=== PATIENT | male | born 1970 | race Caucasian/White ===

== ENCOUNTER 2022-01-21 14:55 | Observation (INO) | payer OTHER, SELFPAY ==
[2022-01-21] VITALS (7 sets, daily range): BP systolic 94–155; BP diastolic 53–91; PULSE 74–103; RESP 16–22; TEMP 36.6–37.2; O2SAT 94–100; BMI 21.4
--- NOTE | 2022-01-21 16:05 | ED.GENADULT ---
HPI - General Adult General Chief complaint: Unspecified Stated complaint: food bolus Time Seen by Provider: 01/21/22 16:01 History of Present Illness HPI narrative: 51-year-old male presents the emergency room for evaluation of a possible food bolus. Patient states he was eating steak around 1130 this morning, and believes 1piece was not properly swallowed. Patient is unable to swallow water on presentation to the ER. Patient states this is happened 1 time before approximately 3 years ago, but the food bolus self resolved. Denies any shortness of breath or difficulty breathing. Related Data Allergies Allergy/AdvReac Type Severity Reaction Status Date / Time No Known Allergies Allergy Verified 01/21/22 16:10 Review of Systems Review of Systems: CONSTITUTIONAL: Denies fever, chills, or sweats. EYES: Denies visual changes, redness, or discharge. ENT: Denies rhinorrhea, congestion, sore throat, or otalgia. CARDIOVASCULAR: Denies chest pain, palpitations, or edema. RESPIRATORY: Denies cough or dyspnea. GASTROINTESTINAL: Reports food bolus GENITOURINARY: Denies dysuria or hematuria. SKIN: Denies rash or itching. MUSCULOSKELETAL: Denies back pain, joint pain, or myalgia. NEUROLOGIC: Denies headache, numbness, dizziness, or weakness. PSYCHIATRIC: Denies anxiety or depression. Exam Narrative: GENERAL: Well-appearing, well-nourished, no physical limitations, and in no acute distress. HEAD: Normocephalic, atraumatic. EYES: Conjunctivae normal, PERRLA and EOMI. NECK: Supple. No meningeal signs. No adenopathy or masses. CHEST: Clear to auscultation. No respiratory distress. No wheezes rales or rhonchi. No tenderness. HEART: Regular rate and rhythm. No murmur heard. Normal peripheral pulses. ABDOMEN: Soft, nontender, nondistended, normal active bowel sounds. EXTREMITIES: Normal range of motion. No edema. No clubbing or cyanosis SKIN: Warm, dry, no rash. No noted wounds NEURO: No focal deficits. Alert and oriented x3. MAEW. CN's II-XI intact bilaterally, normal gait PSYCH: Cooperative. Normal mood and affect. Course Course Emergency Course: 161: Case with Dr. Das. He wants the patient to be n.p.o. Will take patient to the GI lab for an foreign body extraction. Vital Signs Vital signs: Vital Signs Temperature 36.6 C 01/21/22 15:38 Pulse Rate 103 H 01/21/22 15:38 Respiratory Rate 16 01/21/22 15:38 Blood Pressure 126/62 01/21/22 15:38 Pulse Oximetry 98 01/21/22 15:38 Oxygen Delivery Room Air 01/21/22 15:38 Temperature 36.6 C 01/21/22 15:38 Pulse Rate 103 H 01/21/22 15:38 Respiratory Rate 16 01/21/22 15:38 Blood Pressure 126/62 01/21/22 15:38 Pulse Oximetry 98 01/21/22 15:38 Oxygen Delivery Room Air 01/21/22 15:38 Medical Decision Making Vital Signs Vital Signs: Vital Signs Temperature 36.6 C 01/21/22 15:38 Pulse Rate 103 H 01/21/22 15:38 Respiratory Rate 16 01/21/22 15:38 Blood Pressure 126/62 01/21/22 15:38 Pulse Oximetry 98 01/21/22 15:38 Oxygen Delivery Room Air 01/21/22 15:38 Temperature 36.6 C 01/21/22 15:38 Pulse Rate 103 H 01/21/22 15:38 Respiratory Rate 16 01/21/22 15:38 Blood Pressure 126/62 01/21/22 15:38 Pulse Oximetry 98 01/21/22 15:38 Oxygen Delivery Room Air 01/21/22 15:38 Lab Data Result diagrams: 01/21/22 16:18 01/21/22 16:18 Labs: Lab Results 01/21/22 01/21/22 Range/Units 16:18 16:18 WBC 8.4 (4.5-10.0) K/mm3 RBC 5.51 (4.6-6.20) M/mm3 Hgb 16.9 (14.0-18.0) g/dL Hct 51.0 (42.0-52.0) % MCV 92.6 (80-100) fl MCH 30.7 (26-34) pg MCHC 33.1 (32-36) g/dl RDW 12.9 (11.5-14.5) % Plt Count 261 (150-375) k/mm3 MPV 9.0 (7.4-10.4) fl Immature Gran % (Auto) 0.1 (0-0.5) % Neut % (Auto) 83.5 H (45.5-73.1) % Lymph % (Auto) 10.6 L (18.3-44.2) % [place] % (Auto) 4.5 (2.6-8.5) % Eos % (Auto) 0.6 (0-4.4) % Baso % (Auto) 0.7
[2022-01-21 16:23] LABS: Basophils Absolute Auto 0.1 K/mm3 (0.0-0.1); Basophils Percent Auto 0.7 % (0.2-1.2); Eosinophils Absolute Auto 0.1 K/mm3 (0-0.3); Eosinophils Percent Auto 0.6 % (0-4.4); Hemoglobin 16.9 g/dL (14.0-18.0); Immature Granulocyte Absolute 0.01 K/mm3 (0.00-0.031); Immature Granulocyte Percent A 0.1 % (0-0.5); Lymphocytes Absolute Auto 0.89 K/mm3 (0.9-3.2); Lymphocytes Percent Auto 10.6 % (18.3-44.2); Mean Corpuscular HGB Conc 33.1 g/dl (32-36); Mean Corpuscular Hemoglobin 30.7 pg (26-34); Mean Corpuscular Volume 92.6 fl (80-100); Monocytes Absolute Auto 0.4 K/mm3 (0.1-0.6); Monocytes Percent Auto 4.5 % (2.6-8.5); Neutrophils Percent Auto 83.5 % (45.5-73.1); Platelet Count Result 261 k/mm3 (150-375); Red Blood Count 5.51 M/mm3 (4.6-6.20); Red Cell Distribution Width 12.9 % (11.5-14.5); White Blood Count 8.4 K/mm3 (4.5-10.0)
--- NOTE | 2022-01-21 16:50 | P.CONGI_ITS ---
Assessment and Plan Assessment and plan (1) Food impaction of esophagus: Code(s): T18.128A - Food in esophagus causing other injury, initial encounter Status: Acute Assessment and Plan: Patient with a food impaction. Since this appears to suggest esophageal narrowing most likely web or stricture ring from underlying acid reflux. Plan is for EGD. Potentially for dilatation of the esophagus. Further recom mendations including PPI therapy will be determined after endoscopy. GI Consult Note Consult date/time: 01/21/22 16:50 Reason for consult: Food impacted HPI: Owen Hernandez is a 51 year old male presented to the ER today after eating cube steak about 11 30 this morning. Since that time he has been unable to eat or swallow any additional food. Indeed is in unable to swallow even saliva. Patient has a history of occasional heartburn. He has had intermittent food obstruction in the past typically the will regurgitate food or it will pass spontaneously. Patient currently is on no medications has no allergies. His family history is noncontributory. Patient denies any bleeding. He has had no weight loss. Review of Systems Review of Systems: Review of systems noncontributory. Meds Home Medications and Allergies Allergies Allergy/AdvReac Type Severity Reaction Status Date / Time No Known Allergies Allergy Verified 01/21/22 16:10 Vital Signs Vital Signs - 24 hr 01/21/22 15:38 Temperature 97.9 F Pulse Rate 103 H Respiratory Rate 16 Blood Pressure 126/62 Pulse Oximetry 98 Oxygen Delivery Room Air Exam Narrative: Physical exam reveals patient to be alert. Vital signs stable. HEENT exam is unremarkable. Patient is anicteric. Lungs are clear. Heart without murmur. Abdomen bowel sounds present soft nontender with no organomegaly. Digital external rectal exam deferred this time. Results Labs CBC & Chem 7: 01/21/22 16:18 01/21/22 16:18 Labs: Short CBC 01/21/22 Range/Units 16:18 WBC 8.4 (4.5-10.0) K/mm3 Hgb 16.9 (14.0-18.0) g/dL Hct 51.0 (42.0-52.0) % Plt Count 261 (150-375) k/mm3
[2022-01-21 16:54] LABS: Alanine Aminotransferase 24 U/L (6-50); Alkaline Phosphatase 95 U/L (38-126); Anion Gap 11 mmol/L (8-16); Aspartate Amino Transferase 26 U/L (17-59); Bilirubin,Total 0.8 mg/dL (0.2-1.3); Blood Urea Nitrogen 19 mg/dL (9-20); Calcium 9.3 mg/dL (8.4-10.2); Carbon Dioxide 24 mmol/L (22-30); Chloride 106 mmol/L (98-107); Estimated CRCL calculation 64 ml/min; Estimated Glomerular Filt Rate > 60; Glucose 124 mg/dL (65-110); Potassium 3.9 mmol/L (3.4-5.0); Sodium 141 mmol/L (137-145)
[2022-01-21] MEDS: LACTATED RINGERS 1,000 ML 150 ML IV CONT (16:54)
--- NOTE | 2022-01-21 17:02 | WPDANESEPPF ---
Anes - Initial Pre Proc Eval Procedure: Operation Date: 01/21/22 16:45 Proposed Procedures p Esophagogastroduodenoscopy - Alexis Das MD Date/Time: 01/21/22 17:02 Surgeon: Alexis Das MD Pre Op Diagnosis: food bolus Patient Data Age: 51 Gender: M Height: 1.7 m Weight: 68 kg Last Vital Signs Temp 37.2 C 01/21/22 16:56 Pulse 97 01/21/22 16:56 Resp 21 H 01/21/22 16:56 BP 155/91 H 01/21/22 16:56 Pulse Ox 99 01/21/22 16:56 O2 Del Method Room Air 01/21/22 16:56 Allergies Allergy/AdvReac Type Severity Reaction Status Date / Time No Known Allergies Allergy Verified 01/21/22 16:10 Laboratory Tests 01/21/22 01/21/22 16:18 16:18 WBC 8.4 K/mm3 K/mm3 (4.5-10.0) RBC 5.51 M/mm3 M/mm3 (4.6-6.20) Hgb 16.9 g/dL g/dL (14.0-18.0) Hct 51.0 % % (42.0-52.0) MCV 92.6 fl fl (80-100) MCH 30.7 pg pg (26-34) MCHC 33.1 g/dl g/dl (32-36) RDW 12.9 % % (11.5-14.5) Plt Count 261 k/mm3 k/mm3 (150-375) MPV 9.0 fl fl (7.4-10.4) Immature Gran % (Auto) 0.1 % % (0-0.5) Neut % (Auto) 83.5 % H % (45.5-73.1) Lymph % (Auto) 10.6 % L % (18.3-44.2) [place] % (Auto) 4.5 % % (2.6-8.5) Eos % (Auto) 0.6 % % (0-4.4) Baso % (Auto) 0.7 % % (0.2-1.2) Lymph # (Auto) 0.89 K/mm3 L K/mm3 (0.9-3.2) [place] # (Auto) 0.4 K/mm3 K/mm3 (0.1-0.6) Eos # (Auto) 0.1 K/mm3 K/mm3 (0-0.3) Baso # (Auto) 0.1 K/mm3 K/mm3 (0.0-0.1) Abs Immat Gran (auto) 0.01 K/mm3 K/mm3 (0.00-0.031) Absolute Neuts (auto) 7.0 K/mm3 H K/mm3 (1.3-6.7) Absolute Nucleated RBC 0.0 K/mm3 K/mm3 (0.0-0.012) Nucleated RBC % 0.0 % % (0.0-0.2) Sodium 141 mmol/L mmol/L (137-145) Potassium 3.9 mmol/L mmol/L (3.4-5.0) Chloride 106 mmol/L mmol/L (98-107) Carbon Dioxide 24 mmol/L mmol/L (22-30) Anion Gap 11 mmol/L mmol/L (8-16) BUN 19 mg/dL mg/dL (9-20) Creatinine 1.10 mg/dL mg/dL (0.7-1.3) Estim Creat Clear Calc 64 ml/min ml/min Estimated GFR > 60 (59 - ) Glucose 124 mg/dL H mg/dL (65-110) Calcium 9.3 mg/dL mg/dL (8.4-10.2) Total Bilirubin 0.8 mg/dL mg/dL (0.2-1.3) AST 26 U/L U/L (17-59) ALT 24 U/L U/L (6-50) Alkaline Phosphatase 95 U/L U/L (38-126) Total Protein 8.0 g/dL g/dL (6.3-8.2) Albumin 5.0 g/dL g/dL (3.5-5.1) Patient hx anesthesia problems: none Family hx anesthesia problems: none Results Review: All pre-operative results and documents have been reviewed as part of the pre-operative evaluation. Anes - Eval Final PreProcedure Day of Procedure 01/21/22 17:02 Patient weight: normal Heart: regular rate and rhythm Lungs: clear to auscultation Airway: Mallampati scale class II Neurological: alert and oriented Last oral intake: 6 hours ASA classification: I Emergent: yes Anesthetic plan: proceed Anesthesia type and monitoring: general GIVS and standard monitoring Results Review: All pre-operative results and documents have been reviewed as part of the pre-operative evaluation. Informed Consent: The patient's anesthetic plan and its attendant risks and benefits were discussed with the patient/family/POA. Questions were solicited and answers provided to the satisfaction of the patient/family/POA.
--- NOTE | 2022-01-21 17:56 | ADMGEN ---
This patient, Owen Hernandez, was admitted to Medical Room 346-01. Patient/family oriented to hospital policies and general routines including ID bracelet, bed and alarms, visiting hours, pain management, procedures, bathroom and other care routines, personal items, smoking policy, room service/diet, and visiting hours. Information on how to activate the Rapid Response Team has been discussed. Patient/Family are encouraged to report perceived risks to care and to ask questions if they do not understand what they are told or what they should do.
[2022-01-21] MEDS: SODIUM CHLORIDE 0.9% IV 1,000 ML 125 ML IV CONT (18:43)
[2022-01-22 06:00] VITALS: BP 105/57; PULSE 56; RESP 16; TEMP 36.7; O2SAT 99
[2022-01-22] MEDS: PANTOPRAZOLE 40 MG TABLET PO (08:31)
--- NOTE | 2022-01-22 11:11 | PM.SD2 ---
Same Day Admit/Disch: HPI History of Present Illness Chief complaint: food bolus Narrative: Owen Hernandez is a 51 year old male Who presented to the emergency room with chief complaint of feeling that food was stuck in his throat. Patient states that he was at work eating lunch at approximately 11:45 a.m. when he was unable to pass a bite of sandwich that he was eating. He continued to try to drink water and to vomit but he was unable to remove the items stuck in his throat. At approximately 2:30 a.m. he came to the hospital. patient does report that this is not the 1st time that this has happened and that it seems to be happening more frequently. Patient was seen by GI and underwent EGD. No dilation was performed during this hospitalization because tissue appeared erythematous and friable. Fluid bolus was removed from the esophagus and patient was advised to follow-up in 1-2 months for EGD with dilation. Additionally patient was given indications to eat a soft diet cut food into small pieces, chew food adequately, and drink fluids with meals. He is discharged home in stable condition with indications to follow-up with his primary care physician in addition to the above. [facility] Past Medical History Medical History (Updated 01/22/22 @ 21:22 by Tammi Monet MD) Difficulty swallowing solids Surgical History Surgical History (Updated 01/22/22 @ 21:22 by Tammi Monet MD) H/O left wrist surgery History of shoulder surgery Family History Family History (Updated 01/22/22 @ 21:27 by Tammi Monet MD) Other Dementia Diabetes mellitus Social History Social History Smoking status: Never smoker Alcohol intake: former Substance use: never Substance use type: does not use Spiritual care concerns: No Same Day Admit/Disch: Med Pre-admit Medications Home Medications Medication Instructions Recorded Confirmed Type pantoprazole 40 mg tablet,delayed 40 mg PO QAM 90 days #90 tabs 01/22/22 Rx release Exam Const: General: cooperative, comfortable and no acute distress Nutritional Appearance: average body habitus and thin Orientation/consciousness: oriented to person, oriented to place, oriented to time and patient oriented x3 Limitations: no limitations HENMT: Head: normal to inspection Face and sinus: normal facial exam Mouth: Yes Normal oral and palatal mucosa present Eyes: General: appearance normal, both eyes and all related structures EOM: EOMs intact bilaterally Neck: Neck: normal visual inspection and no lymphadenopathy Chest: Chest palpation & inspection: normal inspection of the chest Resp: Effort & Inspection: normal respiratory effort, able to speak in complete sentences, no audible wheezes and no cough Cardio: Jugular venous distension: no JVD Rate: regular rate Rhythm: regular rhythm GI: Inspection: normal to inspection GI Palp: No abdominal tenderness and Yes Soft to palpation Auscultation: normal bowel sounds Rectal Exam: deferred Skin: General skin exam: normal color and no rashes or lesions noted Neuro: General: oriented to person, oriented to place, oriented to time and patient oriented x3 Cranial nerves: Yes CN's II-XII intact bilaterally, Yes Bilaterally intact EOM present, Yes Nystagmus not present, Yes facial symmetry and Yes Midline tongue present Speech: normal speech Gait exam (Neuro): Unable to assess gait Psych: Appearance: grossly normal and well kempt Mental Status: mental status grossly normal Speech and movement: Normal speech and movement present Thought content: Yes Normal thought content present Insight: Good insight present (Psych) Judgement: Good judgement present (Psych) DS: Data Data Completed and Pending Labs on day of discharge: Labs from last 24 hours 01/21/22 01/21/22 16:18 16:18 WBC 8.4 RBC 5.51 Hgb 16.9 Hct 51.0 MCV 92.6 MCH 30.7 M
--- NOTE | 2022-01-22 13:22 | WPDANESPN ---
Anes - Prog Note Post-Op Date/Time: 01/22/22 10:59 Cardiovascular status: normal Respiratory status: normal Airway patency: baseline Mental status: baseline Post-Op hydration status: normal Vital Signs: Last Vital Signs Temp 98.1 F 01/22/22 06:00 Pulse 56 L 01/22/22 06:00 Resp 16 01/22/22 06:00 BP 105/57 L 01/22/22 06:00 Pulse Ox 99 01/22/22 06:00 O2 Del Method Room Air 01/22/22 08:00 Pain Score (VAS): 0 I/O: Intake & Output 01/21/22 01/22/22 01/22/22 23:59 07:59 15:59 Intake Total 225 300 Balance 225 300 Laboratory Tests 01/21/22 16:18 01/21/22 16:18 01/21/22 01/21/22 16:18 16:18 WBC 8.4 RBC 5.51 Hgb 16.9 Hct 51.0 MCV 92.6 MCH 30.7 MCHC 33.1 RDW 12.9 Plt Count 261 MPV 9.0 Immature Gran % (Auto) 0.1 Neut % (Auto) 83.5 H Lymph % (Auto) 10.6 L [place] % (Auto) 4.5 Eos % (Auto) 0.6 Baso % (Auto) 0.7 Lymph # (Auto) 0.89 L [place] # (Auto) 0.4 Eos # (Auto) 0.1 Baso # (Auto) 0.1 Abs Immat Gran (auto) 0.01 Absolute Neuts (auto) 7.0 H Absolute Nucleated RBC 0.0 Nucleated RBC % 0.0 Sodium 141 Potassium 3.9 Chloride 106 Carbon Dioxide 24 Anion Gap 11 BUN 19 Creatinine 1.10 Estim Creat Clear Calc 64 Estimated GFR > 60 Glucose 124 H Calcium 9.3 Total Bilirubin 0.8 AST 26 ALT 24 Alkaline Phosphatase 95 Total Protein 8.0 Albumin 5.0 Post-procedural complaints: none Patient Feedback: Patient satisfied with anesthetic care.
== END 2022-01-22 12:15 | disposition home or self-care (01) ==
LOC: ANHED 16:30 → ANHSURGERY 16:43 → ANH3MED 01-22 11:15
PROVIDERS: Internal Medicine Gastroenterology; Admitting Provider Internal Medicine; Emergency Provider Nurse Practitioner Family; Visit Provider Hospitalist
PROC: 0DJ08ZZ Inspection of Upper Intestinal Tract, Via Natural or Artificial Opening Endoscopic (ICD-10-PCS; CPT 43235; principal; 2022-01-21 16:45)
DX: T18.128A Food in esophagus causing other injury, initial encounter (principal); R13.10 Dysphagia, unspecified
CPT/HCPCS: 43247; 36415; 80053; 85025; 96360; 99285; A9270; G0378; J2704; J7030; J7120

== ENCOUNTER 2022-03-07 00:33 | Day surgery (SDC) | payer OTHER, SELFPAY ==
[2022-02-22 16:05] VITALS: BMI 24.1
[2022-03-07 07:15] VITALS: BP 122/75; PULSE 56; RESP 18; TEMP 36.5; O2SAT 100
--- NOTE | 2022-03-07 07:23 | P.HP_ITS ---
History of Present Illness History of Present Illness Consent: Risks, benefits, and alternatives have been discussed and questions answered. Patient agrees to proceed with procedure. Chief complaint: dysphagia Narrative: Owen Hernandez is a 51 year old male Presents for EGD. Patient complains of difficulty swallowing. He had a food impaction in January of 2022. He states that he continues to have difficulty swallowing. He occasionally will have heartburn. He has to maintain a soft diet to prevent difficulties with food passing from the mouth to the stomach. Patient presents today for EGD and possible dilatation. Current medications include pantoprazole 40mg p.o. daily. Family history is noncontributory. Review of Systems Review of Systems: Review of systems noncontributory. [facility] Past Medical History Medical History (Updated 03/07/22 @ 07:25 by Alexis Das MD) Difficulty swallowing solids Surgical History Surgical History (Updated 01/22/22 @ 21:22 by Tammi Monet MD) H/O left wrist surgery History of shoulder surgery Family History Family History (Updated 01/22/22 @ 21:27 by Tammi Monet MD) Other Dementia Diabetes mellitus Social History Social History Smoking status: Never smoker Alcohol intake: former Substance use: never Substance use type: does not use Spiritual care concerns: No Meds Home Medications and Allergies Home Medications Medication Instructions Recorded Confirmed Type pantoprazole 40 mg tablet,delayed 40 mg PO QAM 90 days #90 tabs 01/22/22 02/22/22 Rx release Allergies Allergy/AdvReac Type Severity Reaction Status Date / Time No Known Allergies Allergy Verified 03/07/22 07:14 Vital Signs Vital Signs - 24 hr 03/07/22 07:15 Temperature 97.7 F Pulse Rate 56 L Respiratory Rate 18 Blood Pressure 122/75 Pulse Oximetry 100 Oxygen Delivery Room Air Exam Narrative: Physical exam reveals patient to be alert. Vital signs stable. HEENT exam is unremarkable. Patient is anicteric. Lungs are clear to auscultation and percussion. Heart is without murmur or extra sounds. Abdomen bowel sounds are present soft nontender with no organomegaly. Digital external rectal exam is normal. Assessment and Plan Assessment and plan (1) Dysphagia: Code(s): R13.10 - Dysphagia, unspecified Status: Acute Assessment and Plan: Patient complains of difficulty swallowing solid foods more so than liquids. He is known to have esophageal stricture by recent endoscopy. Had a food impaction in January which was removed endoscopically. Currently on p antoprazole for underlying GE reflux. Plan is for EGD to evaluate the esophagus once again and possibly for dilatation. Further recommendations will be given after endoscopy.
[2022-03-07] MEDS: LACTATED RINGERS 1,000 ML 150 ML IV CONT (07:27)
--- NOTE | 2022-03-07 08:08 | P.PNAN_ITS ---
Anes - Initial Pre Proc Eval Procedure: Operation Date: 03/07/22 08:30 Proposed Procedures p Esophagogastroduodenoscopy - Alexis Das MD Date/Time: 03/07/22 08:08 Surgeon: Alexis Das MD Pre Op Diagnosis: dysphagia Patient Data Age: 51 Gender: M Height: 1.7 m Weight: 63.9 kg Last Vital Signs Temp 97.7 F 03/07/22 07:15 Pulse 56 L 03/07/22 07:15 Resp 18 03/07/22 07:15 BP 122/75 03/07/22 07:15 Pulse Ox 100 03/07/22 07:15 O2 Del Method Room Air 03/07/22 07:15 Allergies Allergy/AdvReac Type Severity Reaction Status Date / Time No Known Allergies Allergy Verified 03/07/22 07:14 Home Medications Medication Instructions Recorded Confirmed Type pantoprazole 40 mg tablet,delayed 40 mg PO QAM 90 days #90 tabs 01/22/22 02/22/22 Rx release Patient hx anesthesia problems: none Family hx anesthesia problems: none Results Review: All pre-operative results and documents have been reviewed as part of the pre- operative evaluation. [facility] Past Medical History Medical History (Updated 03/07/22 @ 07:25 by Alexis Das MD) Difficulty swallowing solids Surgical History Surgical History (Updated 01/22/22 @ 21:22 by Tammi Monet MD) H/O left wrist surgery History of shoulder surgery Family History Family History (Updated 01/22/22 @ 21:27 by Tammi Monet MD) Other Dementia Diabetes mellitus Social History Social History Smoking status: Never smoker Alcohol intake: former Substance use: never Substance use type: does not use Spiritual care concerns: No Anes - Eval Final PreProcedure Day of Procedure 03/07/22 08:08 Patient weight: normal Heart: regular rate and rhythm Lungs: clear to auscultation Airway: Mallampati scale class II Neurological: alert and oriented Last oral intake: >/= 8 hours ASA classification: II Emergent: no Anesthetic plan: proceed Anesthesia type and monitoring: general GIVS and standard monitoring Results Review: All pre-operative results and documents have been reviewed as part of the pre- operative evaluation. Informed Consent: The patient's anesthetic plan and its attendant risks and benefits were discussed with the patient/family/POA. Questions were solicited and answers provided to the satisfaction of the patient/family/POA.
[2022-03-07 08:39] VITALS: BP 121/77; PULSE 74; RESP 21; O2SAT 97
[2022-03-07 08:49] VITALS: BP 132/77; PULSE 66; RESP 14; O2SAT 98
[2022-03-07 08:59] VITALS: BP 131/91; PULSE 68; RESP 18; O2SAT 100
== END 2022-03-07 09:08 | disposition home or self-care (01) ==
PROVIDERS: Visit Provider Internal Medicine Gastroenterology
PROC: 0DJ08ZZ Inspection of Upper Intestinal Tract, Via Natural or Artificial Opening Endoscopic (ICD-10-PCS; CPT 43235; principal; 2022-03-07 08:30)
DX: Q39.4 Esophageal web (principal)
CPT/HCPCS: 43450; 43235; J2704; J7120